=== PATIENT | female | born 1930 | race Caucasian/White ===

== ENCOUNTER 2021-04-09 06:13 | Day surgery (SDC) | payer OTHER ==
[2021-04-08 16:11] LABS: BASOPHILS # (AUTO) 0.1 X10'3 (0-0.2); BASOPHILS % (AUTO) 1.8 % (0-1); EOSINOPHILS # (AUTO) 0.2 X10'3 (0-0.9); EOSINOPHILS % (AUTO) 3.5 % (0-6); HEMATOCRIT 36.5 % (35.0-45.0); HEMOGLOBIN 12.3 g/dl (12.0-16.0); LYMPHOCYTES # (AUTO) 0.9 X10'3 (1.1-4.8); LYMPHOCYTES % (AUTO) 21.8 % (21-51); MEAN CORPUSCULAR HEMOGLOBIN 30.7 PG (27.0-31.0); MEAN CORPUSCULAR HGB CONC 33.6 g/dL (33.0-36.5); MEAN CORPUSCULAR VOLUME 91.4 FL (78-98); MEAN PLATELET VOLUME 8.8 FL (7.4-10.4); MONOCYTES # (AUTO) 0.4 X10'3 (0-0.9); MONOCYTES % (AUTO) 9.4 % (2-12); NEUTROPHILS # (AUTO) 2.7 X10'3 (1.8-7.7); NEUTROPHILS % (AUTO) 63.5 % (42-75); PLATELET COUNT 153 X10'3 (140-440); RED CELL DISTRIBUTION WIDTH 14.2 % (11.5-14.5); WHITE BLOOD COUNT 4.2 X10'3 (4.5-11.0)
[2021-04-08 16:20] LABS: ALBUMIN 3.9 G/DL (3.4-5.0); ANION GAP 7 (8-16); BLOOD UREA NITROGEN 24 MG/DL (7-18); BUN/CREATININE RATIO 25.3 (6.6-38.0); CALCIUM 9.5 MG/DL (8.5-10.1); CHLORIDE 107 MMOL/L (99-107); CREATININE 0.95 MG/DL (0.40-0.90); GLUCOSE 108 MG/DL (70-104); POTASSIUM 3.6 MMOL/L (3.5-5.1); SODIUM 144 MMOL/L (135-145); TOTAL CARBON DIOXIDE 30.4 MMOL/L (24-32); eGFR 55 ML/MIN
[2021-04-08 16:23] LABS: PARTIAL THROMBOPLASTIN TIME 25 SECONDS (22-32)
[~2021-04-09] VITALS: Ht 157.5 cm; Wt 60.1 kg
[2021-04-09] VITALS (10 sets, daily range): BP systolic 127–179; BP diastolic 53–73
[2021-04-09] MEDS ORDERED: diphenhydrAMINE 25mg capsule PO PRN (06:35)
[2021-04-09] MEDS ORDERED: LIDOcaine/PRILOcaine 5gm cream TP ONE (06:35)
[2021-04-09] MEDS ORDERED: LORazepam 0.5 MG tablet PO PRN (06:35)
[2021-04-09] MEDS ORDERED: VIT1CAPS46 PO (06:43)
[2021-04-09] MEDS ORDERED: ASPI-1265 PO (06:43)
[2021-04-09] MEDS ORDERED: LOSA100T57 PO (06:43)
[2021-04-09] MEDS ORDERED: TRAM50TA2 PO (06:43)
[2021-04-09] MEDS ORDERED: CHOL10006 PO (06:43)
[2021-04-09] MEDS ORDERED: UBID100C16 PO (06:43)
[2021-04-09] MEDS ORDERED: OMEG-79 PO (06:43)
[2021-04-09] MEDS ORDERED: TRET20CR2 TOP (06:43)
[2021-04-09] MEDS ORDERED: ATOR40TA72 PO (06:43)
[2021-04-09] MEDS ORDERED: ESTR1PAT81 TD (06:43)
[2021-04-09] MEDS ORDERED: nitroGLYCERIN-Tridil 50MG/D5W 250 ML IV ONE (07:29)
[2021-04-09] MEDS ORDERED: LIDOcaine 1% (10mg/ml)w/preservative injection 20ml MDV ONE (07:30)
[2021-04-09] MEDS ORDERED: midazolam 1 mg/ML 2ml injection ONE (07:30)
[2021-04-09] MEDS ORDERED: fentaNYL/PF 50MCG/1 ML 2ML syringe ONE (07:30)
[2021-04-09] MEDS ORDERED: iohexol 350 MG/ML 50ML vial IV ONE (07:30)
[2021-04-09] MEDS ORDERED: verapamil 2.5 mg/ml inj IV ONE (07:30)
[2021-04-09] MEDS ORDERED: iohexol 350MG/ML 100ml bottle IV ONE (07:30)
[2021-04-09] MEDS ORDERED: heparin 1,000unit/ml 10ml vial 10 ML ONE (07:35)
[2021-04-09] MEDS ORDERED: normal saline 1000ml 1,000 ML IV SCH (09:10)
== END 2021-04-09 13:38 | disposition home or self-care (01) ==
LOC: SSTAY O 06:13
PROVIDERS: ATTEND Internal Medicine Cardiovascular Disease
DX: R07.89 Other chest pain (principal); R06.02 Shortness of breath; I25.10 Atherosclerotic heart disease of native coronary artery without angina pectoris; I10 Essential (primary) hypertension; E78.5 Hyperlipidemia, unspecified; G25.0 Essential tremor; I36.1 Nonrheumatic tricuspid (valve) insufficiency; Z79.899 Other long term (current) drug therapy; Z79.82 Long term (current) use of aspirin; Z90.710 Acquired absence of both cervix and uterus; Z82.49 Family history of ischemic heart disease and other diseases of the circulatory system; Z81.1 Family history of alcohol abuse and dependence
CPT/HCPCS: 36415; 76937; 80048; 85025; 85610; 85730; 93005; 93458; 99152; 99153; C1769; C1894; J1644; J2001; J2250; J3010; Q0163; Q9967; A4620; A5120; A6258; J3490